=== PATIENT | female | born 1965 | race Caucasian/White ===

== ENCOUNTER → 2018-07-04 | Day surgery (SDC) | payer OTHER ==
[2018-07-01 12:36] VITALS: BMI 35.9
[~2018-07-04] MED LIST: HYDROmorphone 0.5 MG/0.5 ML SYRINGE IVP PRN; LACTATED RINGERS 1,000 ML IV ONE; LACTATED RINGERS 1,000 ML IV SCH; LIDOCAINE 1% 20 ML VIAL (10MG/ML) FOR IV START INTRADERMA PRN; LIDOCAINE 1% INJ 10MG/ML (20 ML MDV) ONE; MIDAZOLAM 2 MG/2 ML VIAL IV PRN; MIDAZOLAM 2 MG/2 ML VIAL ONE; PROPOFOL 10 MG/ML 20 ML VIAL IV ONE; Pre Op ABX Message 1 EACH MISC MISCELLANE ONE; fentaNYL (PF) 50 MCG/ML 2 ML AMP ONE
[2018-07-04 07:41] VITALS: TEMP 98.2
--- NOTE | 2018-07-04 08:30 | P.OP ---
Date of Procedure: 07/04/18 Preoperative Diagnosis: Abdominal pain, GERD Postoperative Diagnosis: Gastritis Procedure(s) Performed: EGD with Biopsy Anesthesia: MAC Surgeon: Randy Neville Condition: stable Disposition: PACU Operative Findings: Patient is brought into the operative suite placed in the left lateral decubitus position underwent sedation per department of anesthesia endoscope was passed through the oropharynx down the esophagus with ease through the stomach and the first and second portion of the duodenum which were inspected no abnormalities were noted the scope was withdrawn to the stomach and retroflexed in all diaz of the stomach were inspected there is no significant hilar hernia noted there was some mild gastritis. Antral biopsies taken to rule out H. pylori. Scope was then withdrawn to the GE junction biopsies of the GE junction were taken to rule out Judge's esophagitis. Scope was slowly withdrawn through the esophagus there was at 25 cm a patch of hypertrophic or inflamed appearing esophageal tissue this was biopsied. Patient tolerated procedure well no apparent complications please see the other dictation for a colonoscopy.
--- NOTE | 2018-07-04 08:32 | P.OP ---
Date of Procedure: 07/04/18 Preoperative Diagnosis: Screening abdominal pain Postoperative Diagnosis: Normal appearing colon Anesthesia: MAC Surgeon: Randy Neville Condition: stable Disposition: PACU Operative Findings: Patient previously had underwent sedation per department of anesthesia and upper endoscopy was performed patient was turned rectal exam was performed no abnormalities were noted scope was passed from the rectum to the cecum with ease and slowly withdrawn being sure to visualize all diaz of the colon on the way out the scope was retroflexed in the rectum no abnormalities were noted. Patient artery procedure well no apparent complications she will need a repeat colonoscopy in 10 years.
[2018-07-04 08:33] VITALS: PULSE 67; RESP 16
[2018-07-04 08:51] VITALS: BP 144/91
== END ==
LOC: ORWHC2ENDO 07:20
PROVIDERS: ATTEND Student in an Organized Health Care Education/Training Program
DX: Z12.11 Encounter for screening for malignant neoplasm of colon (principal); K29.50 Unspecified chronic gastritis without bleeding; K21.0 Gastro-esophageal reflux disease with esophagitis; Z80.8 Family history of malignant neoplasm of other organs or systems; D64.9 Anemia, unspecified; F32.9 Major depressive disorder, single episode, unspecified; H40.9 Unspecified glaucoma; I10 Essential (primary) hypertension; E03.9 Hypothyroidism, unspecified; Z79.890 Hormone replacement therapy; Z79.899 Other long term (current) drug therapy; Z90.49 Acquired absence of other specified parts of digestive tract
CPT/HCPCS: 81025; 88305; 43239; J2250; J2001; J3010; J2704; G0105

== ENCOUNTER → 2018-09-26 | Outpatient (CLI) | payer OTHER ==
--- NOTE | 2018-09-26 17:20 | CONS ---
CONSULTATION DATE OF SERVICE: 09/26/2018 This patient is a 52-year-old lady who has been evaluated in the sleep center for possible obstructive sleep apnea-hypopnea syndrome and also for symptoms of restless legs and episodes of hsy-vq-pffaw movements. HISTORY OF PRESENT ILLNESS/SLEEP-WAKE EVALUATION: Patient's usual sleep schedule on weekdays us from 11 p.m. until 5:30 a.m. and on weekends from 11 p.m. until 8:30 or 9 a.m. No problems with falling asleep, although she has a TV set in the bedroom. She usually sleeps on the side position, with snoring, according to her . Patient wakes up from sleep with dry mouth, heartburn, leg movements and nocturia up to 5 times. She has had several episodes of mxp-ou-czrwq movements with moving of her arms. In the morning patient wakes up tired, has difficulties paying attention and problems with concentration. [place] Sleepiness Scale is 9. PAST MEDICAL HISTORY: Positive for: 1. Acid reflux. 2. Gastritis. 3. Hypertension. 4. Hypothyroidism. PAST SURGICAL HISTORY: 1. Cholecystectomy. 2. Intraabdominal surgery for fibroids. MEDICATIONS: 1. Metoprolol. 2. Sertraline. 3. Losartan. 4. Amlodipine. 5. Pantoprazole. 6. Levothyroxine. SOCIAL HISTORY: Negative for smoking. Alcohol consumption occasional. FAMILY HISTORY: Hypertension, coronary artery disease, heart problems, cancer, thyroid problems, mental illness. REVIEW OF SYSTEMS: Multiple awakenings from sleep, tiredness and sleepiness during the day. PHYSICAL EXAMINATION: GENERAL: A pleasant lady without distress. VITAL SIGNS: BP 129/87, HR 64, RR 16, height 5 feet 1-1/4 inches, weight 202.3, temperature 98.4, oxygen saturation at room air 100%. HEENT: PERRLA, EOMI. Evaluation of oropharynx showed tongue protrudes midline. Extremely low position of soft palate. Mallampati IV. NECK: Supple. No JVD. Thyroid is not palpable. Neck is 15 inches in circumference. Some restriction of nasal breathing. LUNGS: Clear to percussion and to auscultation. Good air exchange. No wheezing or rhonchi. HEART: S1, S2 regular. No murmurs, gallops or rubs. ABDOMEN: Slightly obese. EXTREMITIES: No clubbing or cyanosis. COMPO CASTER: Awake, alert, and oriented X3. Cranial nerves 2 to 7 intact. There is no fasciculation or atrophy. noted. No focal deficits observed. IMPRESSION: 1. Snoring, multiple awakenings from sleep, extremely low position of soft palate, restriction of nasal breathing; obstructive sleep apnea-hypopnea syndrome. 2. Obesity with body mass index of 37.9. 3. Hypertension. 4. Restless leg symptoms. 5. Jns-rj-tbgjo movements, usually in the second part of the night , possibly REM sleep behavioral disorder. 6. History of gastritis. 7. Hypothyroidism. 8. Status post cholecystectomy. 9. Status post intraabdominal surgery for fibroids in the uterus. PLAN: 1. Polysomnography for evaluation of patient's breathing during sleep and also to check for possible periodic limb movements and REM sleep behavioral disorder. 2. CPAP/BiPAP titration if sleep study confirms obstructive sleep apnea-hypopnea syndrome. 3. Preferable position during sleep on the side. 4. No driving if patient feels any sleepiness. 5. I will see patient for follow up visit to explain results of testing and following plan. Thank you for referring this patient for consultation. Sincerely, Lebron Contreras MD, PhD, FAASM Diplomat of [place] [employer] [place] [employer] Mid Level Project Manager of [facility] [place] BERNARDO / FINN: [id number] /
== END | disposition home or self-care (01) ==
LOC: SLEEP 16:07
PROVIDERS: ATTEND Internal Medicine
DX: G47.33 Obstructive sleep apnea (adult) (pediatric) (principal); E66.9 Obesity, unspecified; I10 Essential (primary) hypertension; G25.81 Restless legs syndrome; E03.9 Hypothyroidism, unspecified; Z68.37 Body mass index [BMI] 37.0-37.9, adult; Z87.19 Personal history of other diseases of the digestive system; Z90.49 Acquired absence of other specified parts of digestive tract; Z98.890 Other specified postprocedural states; Z79.899 Other long term (current) drug therapy
CPT/HCPCS: 99211

== ENCOUNTER → 2019-02-20 | Outpatient (CLI) | payer BC, OTHER ==
--- NOTE | 2019-02-20 19:32 | PN ---
PROGRESS NOTE DATE OF SERVICE: 02/20/2019 This patient is a 53-year-old lady who has been followed in Sleep Center for treatment of obstructive sleep apnea-hypopnea syndrome. In October the patient had a diagnostic polysomnogram which showed extremely severe obstructive sleep apnea-hypopnea syndrome. After that the patient was started on treatment with AutoPAP. Today is her first visit after she received her CPAP unit. I discussed results of the diagnostic sleep study with the patient in detail. The patient is able to use her equipment every night for the whole night. She feels significantly better with CPAP. No sleepiness during the day. She does not need to take any naps. [place] Sleepiness Scale has decreased to 2. I checked her CPAP unit. Range of the pressure is 5 to 15. Average pressure is 14.6 cm of water. Usage is 25/30 nights for more than 4 hours with average usage 5.0 hours, which is normal compliance. Leak is 19 L/minute, which is normal. Apnea-hypopnea index is only 0.3, which is absolutely perfect. MEDICATIONS: 1. Metoprolol. 2. Sertraline. 3. Losartan. 4. Amlodipine. 5. Pantoprazole. 6. Levothyroxine. PHYSICAL EXAMINATION: GENERAL: A pleasant patient in no distress. VITAL SIGNS: BP 132/82, HR 66, RR 16, weight 215, temperature 98.5, oxygen saturation at room air 97%. HEENT: PERRLA, EOMI. Evaluation of oropharynx showed tongue protrudes midline. Extremely low position of soft palate. Mallampati IV. NECK: Supple. No JVD. Thyroid is not palpable. LUNGS: Clear to percussion and to auscultation. Good air exchange. No wheezing or rhonchi. HEART: S1, S2 regular. No murmurs, gallops or rubs. ABDOMEN: Slightly obese. EXTREMITIES: No clubbing or cyanosis. COVER REMOVER: Awake, alert, and oriented X3. Cranial nerves 2 to 7 intact. There is no fasciculation or atrophy. noted. No focal deficits observed. IMPRESSION: 1. Obstructive sleep apnea-hypopnea syndrome, in severe range. Apnea/hypopnea index 86.5 with oxygen desaturation to 81.1%. Patient demonstrated great compliance with treatment, benefitting from treatment, with normalization of patient's respiration during sleep. 2. Obesity. 3. Periodic limb movements during diagnostic night. No significant clinical presentation of periodic limb movements now. 4. Hypothyroidism. 5. Hypertension. 6. History of anxiety. 7. History of acid reflux, improved after patient was started on treatment with CPAP. PLAN: 1. Patient will continue to use CPAP equipment every night for the whole night. 2. Losing weight. 3. Sleep hygiene with regular time in bed for at least 8 hours. 4. No driving if feeling any sleepiness. 5. We will maintain all necessary CPAP prescriptions, including mask, tube and filters. Thank you very much for allowing me to participate in the management of your patient. Sincerely, Lebron Contreras MD, PhD, FAASM Diplomat of [place] [employer] [employer] [place] Assembler of [facility] [place] MMODL / CAROLYNN: [id number] /
== END | disposition home or self-care (01) ==
LOC: SLEEP 15:50
PROVIDERS: ATTEND Internal Medicine
DX: G47.33 Obstructive sleep apnea (adult) (pediatric) (principal); E66.9 Obesity, unspecified; G47.61 Periodic limb movement disorder; E03.9 Hypothyroidism, unspecified; I10 Essential (primary) hypertension; Z86.59 Personal history of other mental and behavioral disorders; Z87.19 Personal history of other diseases of the digestive system; Z99.89 Dependence on other enabling machines and devices; Z79.899 Other long term (current) drug therapy

== ENCOUNTER → 2019-09-12 | Outpatient (CLI) | payer BC ==
--- NOTE | 2019-09-15 09:54 | ECHOS ---
STRESS ECHOCARDIOGRAM REFERRING DOCTOR: Dr. Melchor. INDICATION: Chest pain. AGE: 53 SEX: F HT: 61 WT: 215 PROTOCOL: STRESS ECHO STAGE: III DURATION OF EXERCISE: 6 minutes 15 seconds HEART RATE REST: 63 BLOOD PRESSURE REST: 118/76 MAXIMUM HEART RATE ACHIEVED: 147 MAXIMUM BLOOD PRESSURE: 208/89 85% MPHR: 144 100% MPHR: 169 METS: 7.3 STRESS DATA: Heart rate 63, pressure is 189/76 mmHg. Baseline EKG showed sinus mechanism. The patient exercised on the treadmill according to Duane protocol for a total of 6 minutes and 15 seconds and achieved 7.3 METS. Max heart rate was 147, which is about 87% of maximum predicted heart rate. Maximum blood pressure was 208/89 mmHg. Clinically the patient developed shortness of breath in response to exercise. The EKG showed about 1- 1.5 mm horizontal and downsloping ST-segment changes. ECHOCARDIOGRAM IMAGES: On echocardiogram images from parasternal long axis view, parasternal short axis view, apical 4 chamber view, and apical 2 chamber view were obtained as the baseline images, at peak heart rate as well as on recovery. The echocardiogram images showed good augmentation in the left ventricular systolic function without any evidence of wall motion abnormalities concerning for ischemia. CONCLUSION: 1. Good exercise tolerance. 2. Abnormal EKG in response to exercise with evidence of ST changes. 3. Normal echocardiogram in response to exercise without any evidence of wall motion abnormalities concerning for ischemia. CLAUDETTEL / IJN: [id number] /
== END | disposition home or self-care (01) ==
LOC: RADNMMAIN 08:54
PROVIDERS: ATTEND Internal Medicine
DX: R94.31 Abnormal electrocardiogram [ECG] [EKG] (principal)
CPT/HCPCS: 93351

== ENCOUNTER → 2020-05-26 | Outpatient (CLI) | payer BC ==
[2020-05-26 10:47] LABS: Basophils # (A) 0.1 k/uL (0-0.2); Basophils % (A) 1 %; Eosinophils # (A) 0.3 k/uL (0-0.7); Eosinophils % (A) 3 %; HCT 43.5 % (34.0-46.0); HGB 13.8 gm/dL (11.4-16.0); Lymphocytes # (A) 2.7 k/uL (1.0-4.8); Lymphocytes % (A) 32 %; MCH 26.1 pg (25.0-35.0); MCHC 31.7 g/dL (31.0-37.0); MCV 82.4 fL (80.0-100.0); Mean Platelet Volume 6.9; Monocytes # (A) 0.5 k/uL (0-1.0); Monocytes % (A) 5 %; Neutrophils # (A) 4.9 k/uL (1.3-7.7); Neutrophils % (A) 57 %; Platelet Count 245 k/uL (150-450); RBC 5.28 m/uL (3.80-5.40); WBC 8.5 k/uL (3.8-10.6)
[2020-05-26 10:53] LABS: Cholesterol 195 mg/dL (<200); HDL Cholesterol 38 mg/dL (40-60); LDL Cholesterol,Calculated 129 mg/dL (0-99); Triglycerides 142 mg/dL (<150)
[2020-05-26 11:20] LABS: ALT 37 U/L (4-34); AST 48 U/L (14-36); African American GFR (CKD) >90 (>60 ml/min/1.73 sqM); Albumin 4.5 g/dL (3.5-5.0); Alkaline Phosphatase 79 U/L (38-126); Anion Gap 9 mmol/L; Blood Urea Nitrogen 14 mg/dL (7-17); Calcium 9.2 mg/dL (8.4-10.2); Carbon Dioxide 25 mmol/L (22-30); Chloride 105 mmol/L (98-107); Glucose 88 mg/dL (74-99); Non-African American GFR(CKD) >90 (>60 ml/min/1.73 sqM); Potassium 4.2 mmol/L (3.5-5.1); Sodium 139 mmol/L (137-145); Total Bilirubin 0.6 mg/dL (0.2-1.3); Total Protein 8.1 g/dL (6.3-8.2)
[2020-05-26 11:36] LABS: T4, Free (Free Thyroxine) 1.14 ng/dL (0.78-2.19)
== END | disposition home or self-care (01) ==
LOC: LABPAT 09:00
PROVIDERS: ATTEND Obstetrics & Gynecology
DX: Z01.818 Encounter for other preprocedural examination (principal); I10 Essential (primary) hypertension; E78.2 Mixed hyperlipidemia; E03.9 Hypothyroidism, unspecified
CPT/HCPCS: 36415; 80053; 80061; 84439; 84443; 85025; 93005

== ENCOUNTER → 2020-06-01 | Day surgery (SDC) | payer BC ==
[2020-05-27 08:59] VITALS: BMI 40.6
--- NOTE | 2020-05-31 20:05 | P.HPOB ---
History of Present Illness H&P Date: 05/31/20 Chief Complaint: Menorrhagia with irregular cycle This is a 54 y.o. female, 0, who presents for dilatation and curettage with hysteroscopy for irregular long menses. Her menses are coming every 1-5 months, lasting up to 3 weeks. Flow is moderate, brown, and malodorous. She tried Provera and it did slow her bleeding, but it has continued to happen. Ultrasound showed uterus measuring 7.4 x 6.2 x 4.3 cm with a fibroid on the left side measuring 2.3 cm. Endometrial thickness only measured 2 mm. Both ovaries are normal. OB Hx: G0 Vp Medical Hx: No hx of STDs. Social Hx: . Works as manufacturing accountant. Review of Systems Constitutional: Reports night sweats, Denies chills, Denies fever Eyes: denies blurred vision, denies pain Ears, nose, mouth and throat: Denies headache, Denies sore throat Cardiovascular: Denies chest pain, Denies shortness of breath Respiratory: Denies cough Gastrointestinal: Denies abdominal pain, Denies diarrhea, Denies nausea, Denies vomiting Genitourinary: Reports hot flashes, Reports menorrhagia, Reports stress incontinence Menstruation: Reports menses 8 or > days, Reports menses variable Musculoskeletal: Denies myalgias Integumentary: Denies pruritus, Denies rash Neurological: Denies numbness, Denies weakness Psychiatric: Reports anxiety, Reports depression Past Medical History Past Medical History: GERD/Reflux, Hypertension, Sleep Apnea/CPAP/BIPAP, Thyroid Disorder Additional Past Medical History / Comment(s): hx endometriosis, heavy menses, history of bicornate uterus History of Any Multi-Drug Resistant Organisms: None Reported Past Surgical History: Cholecystectomy Additional Past Surgical History / Comment(s): LAPAROSCOPIC EXAM X2; Hysteroscopic removal of uterine septum Past Anesthesia/Blood Transfusion Reactions: No Reported Reaction Additional Past Anesthesia/Blood Transfusion Reaction / Comment(s): 2007-had too much valium preop had to be intubated-surgeries after with no problems.No hx blood transfusion Past Psychological History: Anxiety, Depression Smoking Status: Never smoker Past Alcohol Use History: Occasional Past Drug Use History: None Reported - Past Family History Mother Family Medical History: Cancer, Deep Vein Thrombosis (DVT) Additional Family Medical History / Comment(s): LUNG CANCER Medications and Allergies Home Medications Medication Instructions Recorded Confirmed Type Cetirizine HCl [Zyrtec] 10 mg PO DAILY 07/01/18 06/01/20 History Levothyroxine Sodium [Synthroid] 50 mcg PO QAM 07/01/18 06/01/20 History Losartan/Hydrochlorothiazide 1 each PO QAM 07/01/18 06/01/20 History [Losartan-Hctz 100-25 mg Tab] Metoprolol Succinate [Toprol Xl] 100 mg PO BID 07/01/18 06/01/20 History Sertraline [Zoloft] 100 mg PO QAM 07/01/18 06/01/20 History amLODIPine [Norvasc] 10 mg PO QAM 07/01/18 06/01/20 History Medroxyprogesterone Acetate 10 mg PO DAILY 05/27/20 06/01/20 History [Provera] Allergies Allergy/AdvReac Type Severity Reaction Status Date / Time No Known Allergies Allergy Verified 06/01/20 06:34 Exam Osteopathic Statement: *. No significant issues noted on an osteopathic structural exam other than those noted in the History and Physical/Consult. HEENT: within normal limits Heart: regular rate and rhythm Lungs: clear to auscultation bilaterally Abdomen: soft, non-tender Pelvic: uterus small, anteverted, non-tender, no adnexal masses or tenderness Extremities: neg. June's. Assessment and Plan (1) Menorrhagia with irregular cycle Current Visit: No Status: Acute Code(s): N92.1 - EXCESSIVE AND FREQUENT MENSTRUATION WITH IRREGULAR CYCLE SNOMED Code(s): 775703429 Plan: Proceed with dilatation and curettage with hysteroscopy. I have discussed the risks, benefits, and alternative therapies for the above- mentioned procedure and for both sedation/anesthesia as well as necessary blood products administration, if indicated, as they pertain to this patient. The p atient has indicated her understanding and acceptance of the risks and procedures discussed.
[~2020-06-01] MED LIST changes: +DEXAMETHASONE SOD PHOSPHATE 10 MG/ML 1 ML VIAL IV ONE; -HYDROmorphone 0.5 MG/0.5 ML SYRINGE IVP PRN; +KETOROLAC 15 MG/ML 1 ML VIAL ONE; -LACTATED RINGERS 1,000 ML IV ONE; +LIDOCAINE 1% (10MG/ML) FOR IV START INTRADERMA PRN; -LIDOCAINE 1% 20 ML VIAL (10MG/ML) FOR IV START INTRADERMA PRN; -MIDAZOLAM 2 MG/2 ML VIAL IV PRN; +ONDANSETRON 4 MG/2 ML VIAL ONE; +SUCCINYLCHOLINE CHLORIDE VIAL 200 MG/10 ML VIAL IV ONE
[2020-06-01 06:37] VITALS: RESP 16
--- NOTE | 2020-06-01 08:09 | P.OP ---
Date of Procedure: 06/01/20 Preoperative Diagnosis: Menorrhagia with irregular cycle Postoperative Diagnosis: Same Procedure(s) Performed: Dilation and curettage with hysteroscopy Anesthesia: FLIP Surgeon: Ness Mason Estimated Blood Loss (ml): 10 Pathology: other (Endometrial curettings) Condition: stable Disposition: same day Indications for Procedure: This is a 54 y.o. female, 0, who presents for dilatation and curettage with hysteroscopy for irregular long menses. Her menses are coming every 1-5 months, lasting up to 3 weeks. Flow is moderate, brown, and malodorous. She tried Provera and it did slow her bleeding, but it has continued to happen. Ultrasound showed uterus measuring 7.4 x 6.2 x 4.3 cm with a fibroid on the left side measuring 2.3 cm. Endometrial thickness only measured 2 mm. Both ovaries are normal. Operative Findings: Uterus is anteverted, sounded to 9 cm. Upon hysteroscopy, a very dyssynchronous endometrial pattern is noted. The right tubal ostia is visualized but the left tubal ostia is not completely visualized. There is what appears to be polypoid versus fibroid type tissue. There was a large amount of endometrial curettings obtained. Description of Procedure: The patient is taken to the operating room she's placed in the dorsal lithotomy position. She is prepped and draped in the normal sterile fashion. Her bladder is drained with a catheter. Examination is performed under anesthesia. Uterus is found to be anteverted, with no adnexal masses palpated. A weighted speculum was placed in the patient's vagina. A right angle retractor is used to visualize the cervix. The anterior lip of the cervix is grasped with a single- tooth tenaculum. The cervix is gently dilated with Marie dilators. Uterus is sounded to 9 cm. Next hysteroscopy is performed using normal saline. The above noted findings are made and pictures are taken. Next the polyp forceps is introduced and a large amount of polypoid type tissue is obtained. Next a medium-size sharp curet was introduced and sharp curettage was performed until a gritty texture is noted. An irregular contour is palpated and a large amount of tissue is obtained. Next the tissue is removed from the field and sent to pathology. The single-tooth tenaculum was removed. Pressure is applied with a ring forcep. Once the ring forcep was removed no active bleeding is noted. All instruments are removed from the vagina. All sponge counts are correct. The patient is then taken to recovery room in stable condition.
[2020-06-01 08:25] VITALS: TEMP 96.8
[2020-06-01 09:21] VITALS: BP 123/82; PULSE 57
== END | disposition home or self-care (01) ==
LOC: OR 06:19
PROVIDERS: ATTEND Obstetrics & Gynecology
DX: C54.1 Malignant neoplasm of endometrium (principal); N92.0 Excessive and frequent menstruation with regular cycle; K21.9 Gastro-esophageal reflux disease without esophagitis; G47.30 Sleep apnea, unspecified; E07.9 Disorder of thyroid, unspecified; Z87.42 Personal history of other diseases of the female genital tract; N84.0 Polyp of corpus uteri; Q51.3 Bicornate uterus; Z90.49 Acquired absence of other specified parts of digestive tract; Z98.890 Other specified postprocedural states; F41.9 Anxiety disorder, unspecified; F32.9 Major depressive disorder, single episode, unspecified; Z82.49 Family history of ischemic heart disease and other diseases of the circulatory system; Z80.1 Family history of malignant neoplasm of trachea, bronchus and lung; I10 Essential (primary) hypertension; G47.33 Obstructive sleep apnea (adult) (pediatric); Z99.89 Dependence on other enabling machines and devices; Z79.890 Hormone replacement therapy; Z79.899 Other long term (current) drug therapy
CPT/HCPCS: 58558; 81025; 88305; J2250; J0330; J1100; J2405; J2001; J3010; J1885; J2704

== ENCOUNTER → 2020-06-18 | Outpatient (CLI) | payer BC ==
--- NOTE | 2020-06-18 19:21 | CT ---
EXAMINATION TYPE: CT ChestAbdPelvis w con DATE OF EXAM: 06/18/2020 COMPARISON: CT chest 01/30/2010 HISTORY: Endometrial CA CT DLP: 1708 mGycm Automated exposure control for dose reduction was used. CONTRAST: CT scan of the chest, abdomen and pelvis is performed with Oral Contrast and with IV Contrast, patien t injected with 100 mL of Isovue 300. FINDINGS: LUNGS: Lungs are grossly clear. No concerning parenchymal mass or nodule identified. No pleural effus ion. No pneumothorax. The tracheobronchial tree is patent. MEDIASTINUM/SOFT TISSUES: No axillary, hilar, or mediastinal lymphadenopathy greater than 1 cm. Cardi omegaly. No pericardial effusion. No thoracic aortic aneurysm. LIVER: Fatty liver. BILIARY SYSTEM: Prominent common bile duct status post cystectomy. No intrahepatic biliary ductal dil atation. PANCREAS: Normal. SPLEEN: Normal. ADRENALS: Normal. KIDNEYS: No hydronephrosis or hydroureter. Too small to characterize hypodense lesion on the right. BOWEL: No obstruction or thickening. PERITONEUM: No pneumoperitoneum. No free fluid. No peritoneal nodularity. LYMPH NODES: No lymphadenopathy. PELVIS: Normal. VASCULATURE: No abdominal aortic aneurysm. MUSCULOSKELETAL: No aggressive osseous destructive lesions. There are a few scattered hemangiomas of the spine. IMPRESSION: 1. No discrete pelvic mass. No evidence of metastatic endometrial cancer of the chest, abdomen, or p epifanio. 2. Fatty liver. 3. Cardiomegaly.
== END | disposition home or self-care (01) ==
LOC: RADCTMAIN 12:11
PROVIDERS: ATTEND Obstetrics & Gynecology
DX: C54.1 Malignant neoplasm of endometrium (principal); K76.0 Fatty (change of) liver, not elsewhere classified; I51.7 Cardiomegaly
CPT/HCPCS: 71260; 74177; Q9967

== ENCOUNTER → 2021-05-20 | Outpatient (CLI) | payer BC | END | disposition home or self-care (01) | LOC: LABWHC1 08:43 | PROVIDERS: ATTEND Internal Medicine | DX: R21 Rash and other nonspecific skin eruption (principal) | CPT/HCPCS: 36415; 86162 ==

== ENCOUNTER → 2021-08-19 | Outpatient (CLI) | payer BC ==
--- NOTE | 2021-08-19 11:56 | NM ---
EXAMINATION TYPE: NM stress cardiolite complete DATE OF EXAM: 08/19/2021 COMPARISON: NONE HISTORY: Family history of heart attack. History of hypertension with abnormal EKG, bradycardia. TECHNIQUE: After the intravenous administration of 9.4 mCi Tc 99m Sestamibi - Rest images obtained 4 5 minutes post injection. The patient exercised using a KAMLA protocol and 1 minute prior to peak e xercise was injected with 24.7 mCi Tc 99m Sestamibi - Stress images obtained 25 minutes post injectio n. FINDINGS: Targeted heart rate was achieved during performance of the study. Review of stress and rest SPECT dolores ges demonstrates area of defect on rest and stress images involving the anterior wall extending later ally at mid aspect could reflect old infarct or artifact. Gated analysis shows normal wall motion wi th an estimated left ventricular ejection fraction of 65 %. IMPRESSION: No scintigraphic evidence for reversible ischemia
--- NOTE | 2021-08-19 12:03 | P.STRESS ---
- Stress Test Note Stress Test Results/Findings: Exam Performed: NM stress cardiolite complete Exam Date: 08/19/21 Reason for Exam: Abnormal EKG Height: 5 ft 1 in Weight: 104.326 kg Protocol: Duane Stage: 3 Duration of Exercise: 7:26 Resting Heart Rate: 54 Resting Blood Pressure: 115/83 Maximum Achieved Heart Rate: 144 Maximum Achieved Blood Pressure: 215/95 85% PMHR: 147 100% PMHR: 167 METS: 9.5 Technologist Comment: Stress Test Results/Findings: Patient underwent exercise stress Cardiolite with a Duane protocol treadmill stress test. Patient exercised into Stage 3 for a total of 7 minutes and 26 seconds reaching a total of 9.5 METS. Patient's maximum heart rate was 144 which represented 86 % age-predicted maximum heart rate. Stress EKG findings: At baseline patient's EKG showed normal sinus rhythm, normal axis, small Q wave in inferior leads, minimal 0.[address] depressions in V3, V4. At peak exercise, EKG showed no significant change from baseline. Conclusions: 1. Nonspecific EKG response given baseline EKG abnormalities 2. Fair exercise capacity. 3. Nuclear portion to be reported separately.
== END ==
LOC: RADNMMAIN 07:51
PROVIDERS: ATTEND Internal Medicine
DX: R94.31 Abnormal electrocardiogram [ECG] [EKG] (principal); I10 Essential (primary) hypertension; Z82.49 Family history of ischemic heart disease and other diseases of the circulatory system; R00.1 Bradycardia, unspecified
CPT/HCPCS: 93017; 78452; A9500

== ENCOUNTER → 2021-11-04 | Outpatient (CLI) | payer BC ==
[2021-11-04 10:12] VITALS: BP 142/100; PULSE 66; RESP 17; TEMP 97.8
--- NOTE | 2021-11-04 10:49 | P.GSHP ---
History of Present Illness H&P Date: 11/04/21 Chief Complaint: breast pain Sánchez is a 55 year old white female seen in consultation for DR. Mason regarding right breast pain. The diagnostic reports mammogram and 7121 this was to be benign BIRADS 2, however approximately a month later on 05-30-21 to have a bilateral mammogram which revealed an asymmetric area of density in the central portion of the right breast. On the same day she had an ultrasound of the right breast which revealed simple cyst no suspicious fluid collection or mass within the right breast. It was felt to be probably benign BIRADS 3. She has been having pain about one month ago under the nipple on the right. She also had a new nodule in the upper inner right breast. This is tender as well. She has never had any surgery on her breast. She has no complaints of any trauma or infection in the breast. She is not complaining of any nipple discharge or skin changes. The only nodularity which she reports is a area of new nodularity in the upper inner quadrant on the right breast. Caffiene: 2 cups of coffee/day nicotine: none chocolate: occasional hormones: none BCP: stage three uterine cancer a radicle hysterectomy July 2020, August 2020 ended January 2021; 5 sessions radiation therapy [place]; to her knowledge at this time she is in remission (coded on Taxol) Family History: pateint: uterine cancer mother: lung cancer Hormonal History: menarche: 14 G0 menopause: 47 hormones: none Surgical History: Laparoscopy to correct septated uterus Radical hysterectomy gallbladder endometriosis Medical History: HTN hypothyroid pulmonary embloli/ patient on Eloquis Social History: nicotine: none alcohol: occasional drugs: none - Constitutional Constitutional: Reports sweats - EENT Eyes: denies blurred vision, denies pain Ears: bilateral: tinnitus, deny: decreased hearing Ears, nose, mouth and throat: Denies headache, Denies sore throat - Breasts Breasts: bilateral: as per HPI - Cardiovascular Cardiovascular: Denies chest pain, Denies shortness of breath - Respiratory Respiratory: Denies cough, Denies 7 - Gastrointestinal Gastrointestinal: Denies abdominal pain, Denies diarrhea, Denies nausea, Denies vomiting - Genitourinary (Female) Genitourinary: Denies dysuria, Denies hematuria - Menstruation Comment: uterine cancer - Musculoskeletal Musculoskeletal: Denies myalgias - Integumentary Integumentary: Denies pruritus, Denies rash - Neurological Neurological: Denies numbness, Denies weakness - Psychiatric Psychiatric: Reports anxiety - Endocrine Comment: hypothyroid Endocrine: Reports fatigue, Reports weight change - Hematologic/Lymphatic Comment: on Eloquis for Pulmonary Emboli - Allergic/Immunologic Allergic/Immunologic: Reports seasonal allergies Past Medical History Past Medical History: GERD/Reflux, Hypertension, Thyroid Disorder Additional Past Medical History / Comment(s): uterine cancer 2019-stage 3. blood clots in lungs during cancer dx 2019 History of Any Multi-Drug Resistant Organisms: None Reported Past Surgical History: Cholecystectomy, Hysterectomy Additional Past Surgical History / Comment(s): radical hysterectomy with chemo radiation-2019 Past Anesthesia/Blood Transfusion Reactions: No Reported Reaction Additional Past Anesthesia/Blood Transfusion Reaction / Comment(s): 2007-had too much valium preop had to be intubated-surgeries after with no problems.No hx blood transfusion Past Psychological History: Depression Smoking Status: Never smoker Past Alcohol Use History: Rare Past Drug Use History: None Reported - Past Family History Mother Family Medical History: Cancer, Deep Vein Thrombosis (DVT) Additional Family Medical History / Comment(s): LUNG CANCER Medications and Allergies Home Medications Medication Instructions Recorded Confirmed Type Cetirizine HCl [Zyrtec] 10 mg PO DAILY 07/01/18 11/04/21 History Levothyroxine Sodium [Synthroid] 50 mcg PO QAM 07/01/18 11/04/21 History Losartan/Hydrochlorothiazide 1 each PO QAM 07/01/18 11/04/21 History [Losartan-Hctz 100-25 mg Tab] Metoprolol Succinate [Toprol Xl] 100 mg PO BID 07/01/18 11/04/21 History Sertraline [Zoloft] 100 mg PO QAM 07/01/18 11/04/21 History amLODIPine [Norvasc] 10 mg PO QAM 07/01/18 11/04/21 History Apixaban [Eliquis] 5 mg PO BID 11/04/21 11/04/21 History Allergies Allergy/AdvReac Type Severity Reaction Status Date / Time paclitaxel [From Taxol] Allergy Anaphylaxis Verified 11/04/21 10:03 Surgical - Exam Vital Signs Temp Pulse Resp BP 97.8 F 66 17 142/100 11/04/21 10:05 11/04/21 10:05 11/04/21 10:05 11/04/21 10:05 BMI 43.1 - General no distress - Eyes normal ocular movement - ENT no hearing loss, no congestion - Neck trachea midline - Respiratory normal respiratory effort, clear to auscultation - Cardiovascular Rhythm: regular Heart Sounds: normal: S1, S2 - Abdomen Abdomen: soft, non tender, no guarding, no rigid, no rebound - Integumentary normal turgor - Neurologic no disoriented, no combative - Musculoskeletal normal gait - Psychiatric oriented to time, oriented to person, oriented to place, speech is normal, memory intact Breast Exam: BRA: 42C inspection: bilateral grade 3 ptosis, right breast smaller than left breast, a fungal infection under both breast palpation: right breast: Positional exam dense breast tissue, no dominant masses or nodules of concern, lower inner quadrant at inframammary ridge increased tenderness but no discrete mass of concern Right axilla: No adenopathy of concern Left breast: Multi-positional exam fibrocystic changes, dense breasts, no discrete masses prominent inframammary ridge Left axilla: No adenopathy of concern Results Mammogram and ultrasound reports reviewed Assessment and Plan Assessment: Impression: Bilateral fibrocystic breast changes Patient personal history of uterine cancer stage III/in remission at this time Decreased tenderness right breast but persistent with something touching it Prominent inframammary ridges bilateral tender on the right side Patient to follow right breast repeat radiographic studies Nothing noted on today's exam which would warrant interventional biopsy Plan: Right breast mammogram and ultrasound at this time Nystatin cream under the breast Follow-up after mammogram and ultrasound Cc: Dr. Mason, Dr. Melchor
== END ==
LOC: WWCWWP 09:44
PROVIDERS: ATTEND Surgery
DX: N60.11 Diffuse cystic mastopathy of right breast (principal); N60.12 Diffuse cystic mastopathy of left breast; C54.9 Malignant neoplasm of corpus uteri, unspecified; E03.9 Hypothyroidism, unspecified; I10 Essential (primary) hypertension; F32.A Depression, unspecified; Z79.899 Other long term (current) drug therapy; Z88.8 Allergy status to other drugs, medicaments and biological substances

== ENCOUNTER → 2021-11-17 | Outpatient (CLI) | payer BC ==
[2021-11-17 08:49] VITALS: BP 140/85; PULSE 67; RESP 16; TEMP 97.6
--- NOTE | 2021-11-17 09:19 | P.PN ---
Progress Note - Text Progress Note Date: 11/17/21 ; Sánchez is a 56-year-old white female who was seen initially on 2421 regarding breast pain. Of significance is the fact that she has a personal history of uterine cancer stage III in remission at this time. She at that time was noted to have decreased tenderness in her breast but persistent with some touching. She was recommended to undergo repeat right breast mammogram and ultrasound. This was performed on . It was personally reviewed. This is felt to be benign BIRADS 2 and repeat bilateral mammogram is recommended for March on schedule with an appointment at that time. If the patient notes any changes she will call us sooner. CC: Dr. Mason, Dr. Melchor
== END ==
LOC: WWCWWP 08:34
PROVIDERS: ATTEND Surgery
DX: N64.4 Mastodynia (principal); Z85.42 Personal history of malignant neoplasm of other parts of uterus; Z88.8 Allergy status to other drugs, medicaments and biological substances

== ENCOUNTER → 2023-04-11 | Outpatient (CLI) | payer BC ==
--- NOTE | 2023-04-11 11:03 | CA ---
Exercise Nuclear Stress Test Report Name: Sánchez Savage Exam Date: 04/11/2023 10:32 Exam Location: [facility] Stress Ht (in): 61 Wt (lb): 236 BSA: 2.03 Ordering Phys: Yaneth Melchor MD Referring Phys: Ruiz, Technologist: Stan Richard Age: 57 Gender: F : 1965 Procedure CPT: Indications: I21.19 STEMI INVOLVING OTH CORONARY ARTERY OF INFE ICD-10 Codes: Patient History: Medications: Meds past 24 hrs: Pretest Chest Pain: STRESS TEST Duane Protocol Exercise Duration (min:sec): 06:[address] Depressions (mm): Angina Score: Carey Score: Resting HR (bpm): 76 Peak HR (bpm): 142 Resting BP (mmHg): 136 / 83 Peak BP (mmHg): 195 / 73 MPHR: 165 Target HR: 140 % MPHR: 86 METS: 7.1 Total Dose: Peak Dose: Atropine: Double Product: 45279 BP Response: Stress Termination: DYSPNEA UNABLE TO CONTINUE,TARGET HR REACHED/MAX EXERTION Stress Symptoms: DIFFICULTY IN BREATHING Stress Summary: ECG ANALYSIS Resting ECG: Normal sinus rhythm normal axis normal intervals Stress ECG: Patient exercised on Duane protocol for 6 minutes achieving 7 mets 85% of predicted maximal heart rate without chest pain or diagnostic ST segment depression The test was stopped secondary to difficulty in breathing CONCLUSIONS Average exercise tolerance Negative stress test by EKG criteria Dr. Agapito Joyner MD (Electronically Signed) Final Date: 11 April 2023 11:02
--- NOTE | 2023-04-11 22:24 | NM ---
EXAMINATION TYPE: NM stress cardiolite complete DATE OF EXAM: 04/11/2023 COMPARISON: NONE HISTORY: Heart palpitations hypertension TECHNIQUE: After the intravenous administration of 10.3 mCi Tc 99m Sestamibi - Cardiolite resting SP ECT images acquired 45 minutes post injection. At peak stress 25.7 mCi Tc 99m Sestamibi - Stress images obtained 10 minutes post injection The patient was stressed on the treadmill. Greater than 85% predicted maximum heart rate was achieved . FINDINGS: No fixed defects are evident No reversible stress defects on Spect images Wall motion is normal Ejection fraction is calculated to be 72 %. IMPRESSION: 1. No stress-induced ischemic changes
== END | disposition home or self-care (01) ==
LOC: RADNMMAIN 08:02
PROVIDERS: ATTEND Internal Medicine
DX: I21.19 ST elevation (STEMI) myocardial infarction involving other coronary artery of inferior wall (principal); I10 Essential (primary) hypertension; R00.2 Palpitations
CPT/HCPCS: 93017; 78452; A9500

== ENCOUNTER → 2023-06-14 | Outpatient (CLI) | payer BC ==
--- NOTE | 2023-06-14 15:41 | XR ---
EXAMINATION TYPE: XR chest 2V DATE OF EXAM: 06/14/2023 COMPARISON: 09/08/2014 HISTORY: Shortness of breath TECHNIQUE: Frontal and lateral views of the chest are obtained. FINDINGS: Scattered senescent parenchymal changes noted. Hyperinflation compatible with COPD. No evidence for infiltrate. No evidence for atelectasis. Heart size is stable. Mediastinal structures are stable and grossly unremarkable. No evidence for hilar prominence. Degenerative changes dorsal spine. IMPRESSION: 1. No evidence for acute pulmonary disease.
== END | disposition home or self-care (01) ==
LOC: RADXRMAIN 14:29
PROVIDERS: ATTEND Internal Medicine
DX: J40 Bronchitis, not specified as acute or chronic (principal); R06.02 Shortness of breath
CPT/HCPCS: 71046

== ENCOUNTER → 2023-08-13 | Outpatient (CLI) | payer BC ==
--- NOTE | 2023-08-13 10:59 | BD ---
EXAMINATION TYPE: Axial Bone Density DATE OF EXAM: 08/13/2023 CLINICAL HISTORY: 57 years old Female. ICD-10 CODE: M85.851OTH DISRD OF BONE DENSITY AND STRUCTURE, RI Height: 5 ft 1 in Weight: 238 FRAX RISK QUESTIONS: Alcohol (3 or more units per day): no Family History (Parent hip fracture): no Glucocorticoids (More than 3mos): yes (Ex: prednisone, prednisolone, methylprednisolone, dexa methasone, and hydrocortisone). History of Fracture in Adulthood: yes Secondary Osteoporosis: 1. Type 1 Diabetes: no 2. Hyperthyroidism: no 3. Menopause before 45: yes 4. Malnutrition: no 5. Chronic liver disease: no Rheumatoid Arthritis: no Current Tobacco Use: no RISK FACTORS HISTORY OF: Surgery to Spine/Hip(right/left)/Wrist (right/left): no Family History of Osteoporosis: no Active: yes Diet low in dairy products/other sources of calcium: no Postmenopausal woman: yes Take estrogen and/or progesterone medications: no Lost more than 2 inches in height since high school: no Frequent falls: no Poor Health: good Hyperparathyroidism: no Adrenal Insufficiency: no MEDICATIONS: Thyroid Medications: yes Which medication: levothyroxine How Lon years Additional Medications: levothyroxine, metoprolol, amlodipine, losartan, duloxetine , ezetimibe Additional History: endometrial cancer radiation and chemo EXAM MEASUREMENTS: Bone mineral densitometry was performed using the [employer] System. Bone mineral density as measured about the Lumbar spine is: ----- L1-L4(G/cm2): 1.182 T Score Values are as follows: ----- L1: -1.1 ----- L2: 0.2 ----- L3: 0.0 ----- L4: 0.6 ----- L1-L4: 0.0 Z Score Values are as follows: ----- L1: -1.4 ----- L2: -0.1 ----- L3: -0.3 ----- L4: 0.3 ----- L1-L4: -0.3 baseline Bone mineral density about the R hip (g/cm2): 0.761 Bone mineral density about the L hip (g/cm2): 0.832 T Score values are as follows: -----R Neck: -2.0 -----L Neck: -1.5 -----R Total: -0.4 -----L Total: 0.1 Z Score values are as follows: -----R Neck: -1.7 -----L Neck: -1.2 -----R Total: -0.6 -----L Total: -0.1 baseline FRAX%s: The graph provided illustrates a 11.0 % chance for a major osteoporotic fx and a 1.4 % chance for the hips probability for fx in 10 years time. IMPRESSION: Osteopenia (T Score between -2.5 and -1). There is slightly increased risk of fracture and the patient may be considered for treatment. Re-Screen 2-5 years. NOTE: T-SCORE=SD OF THE YOUNG ADULT MEAN.
== END | disposition home or self-care (01) ==
LOC: RADBDWWP 09:06
PROVIDERS: ATTEND Internal Medicine
DX: M85.89 Other specified disorders of bone density and structure, multiple sites (principal); Z78.0 Asymptomatic menopausal state
CPT/HCPCS: 77080

== ENCOUNTER 2023-09-28 12:42 | Day surgery (SDC) | payer BC ==
[2023-09-26 11:01] VITALS: BMI 45.3
[~2023-09-28 12:42] MED LIST changes: -DEXAMETHASONE SOD PHOSPHATE 10 MG/ML 1 ML VIAL IV ONE; -KETOROLAC 15 MG/ML 1 ML VIAL ONE; -LIDOCAINE 1% (10MG/ML) FOR IV START INTRADERMA PRN; -LIDOCAINE 1% INJ 10MG/ML (20 ML MDV) ONE; -MIDAZOLAM 2 MG/2 ML VIAL ONE; -ONDANSETRON 4 MG/2 ML VIAL ONE; -PROPOFOL 10 MG/ML 20 ML VIAL IV ONE; -Pre Op ABX Message 1 EACH MISC MISCELLANE ONE; -SUCCINYLCHOLINE CHLORIDE VIAL 200 MG/10 ML VIAL IV ONE; -fentaNYL (PF) 50 MCG/ML 2 ML AMP ONE
[2023-09-28 14:24] VITALS: TEMP 97.9
[2023-09-28] MEDS ORDERED: PROPOFOL 10 MG/ML 20 ML VIAL IV ONE (14:38)
--- NOTE | 2023-09-28 14:49 | P.PCN ---
Date of Procedure: 09/28/23 Procedure(s) Performed: BRIEF HISTORY: Patient is a 57-year-old pleasant female scheduled for an elective colonoscopy as a part of screening for colon cancer. PROCEDURE PERFORMED: Colonoscopy. PREOPERATIVE DIAGNOSIS: Screening for colon cancer. IV sedation per Anesthesia. PROCEDURE: After informed consent was obtained, the patient, was brought into the endoscopy unit. IV sedation was administered by Anesthesia under continuous monitoring. Digital rectal examination was normal. Initially the Olympus CF-160 flexible video colonoscope was then inserted in the rectum, gradually advanced into the cecum without any difficulty. Careful examination was performed as the scope was gradually being withdrawn. Ileocecal valve and the appendiceal orifice were visualized and appeared normal. Prep was excellent. Mucosa of the cecum, ascending colon, transverse colon, descending colon, sigmoid colon, and rectum appeared normal. Retroflexion was performed in the rectum and no lesions were seen. The patient tolerated the procedure well. IMPRESSION: Normal-appearing colon from rectum to cecum with no evidence of colorectal neoplasia. RECOMMENDATIONS: Findings of this examination were discussed with the patient as well as a family. She was advised to have a repeat screening colonoscopy in 10 years..
[2023-09-28 15:11] VITALS: BP 105/71; PULSE 61; RESP 16
== END 2023-09-28 15:33 | disposition home or self-care (01) ==
LOC: ORWHC2ENDO 12:42
PROVIDERS: ATTEND Internal Medicine Gastroenterology
DX: Z12.11 Encounter for screening for malignant neoplasm of colon (principal); I10 Essential (primary) hypertension; E78.5 Hyperlipidemia, unspecified; G47.33 Obstructive sleep apnea (adult) (pediatric); E07.9 Disorder of thyroid, unspecified; F32.A Depression, unspecified; K21.9 Gastro-esophageal reflux disease without esophagitis; Z86.711 Personal history of pulmonary embolism; Z79.890 Hormone replacement therapy; Z79.899 Other long term (current) drug therapy
CPT/HCPCS: 45378; J2704

== ENCOUNTER 2023-10-12 08:02 | Day surgery (SDC) | payer BC ==
[~2023-10-12 08:02] MED LIST changes: +DEXAMETHASONE SOD PHOSPHATE 4 MG/ML 1 ML VIAL IV ONE; +HYDROmorphone 0.5 MG/0.5 ML SYRINGE IVP PRN; +MIDAZOLAM 2 MG/2 ML VIAL IV PRN; +ONDANSETRON 4 MG/2 ML VIAL IVP ONE; +SCOPOLAMINE 1 MG/72 HR PATCH TRANSDERM ONE
[2023-10-12] MEDS ORDERED: LACTATED RINGERS 1,000 ML IV ONE ×2 (08:30→10:58)
[2023-10-12 08:52] LABS: Basophils # (A) 0.1 k/uL (0-0.2); Basophils % (A) 1 %; Eosinophils # (A) 0.3 k/uL (0-0.7); Eosinophils % (A) 3 %; HCT 40.7 % (34.0-46.0); HGB 13.4 gm/dL (11.4-16.0); Lymphocytes # (A) 2.2 k/uL (1.0-4.8); Lymphocytes % (A) 24 %; MCH 26.3 pg (25.0-35.0); MCHC 32.9 g/dL (31.0-37.0); Mean Platelet Volume 7.6; Monocytes # (A) 0.5 k/uL (0-1.0); Monocytes % (A) 5 %; Neutrophils % (A) 66 %; Platelet Count 253 k/uL (150-450); RBC 5.09 m/uL (3.80-5.40); RDW 14.5 % (11.5-15.5); WBC 9.1 k/uL (3.8-10.6)
[2023-10-12] MEDS ORDERED: fentaNYL (PF) 50 MCG/1 ML VIAL IVP ONE (09:06)
[2023-10-12] MEDS ORDERED: MIDAZOLAM 2 MG/2 ML VIAL IVP ONE (09:06)
[2023-10-12] MEDS ORDERED: LIDOCAINE 2% (PF) 20 MG/ML 2 ML VIAL ONE (09:26)
[2023-10-12] MEDS ORDERED: PROPOFOL 10 MG/ML 20 ML VIAL IV ONE (09:26)
[2023-10-12] MEDS ORDERED: SUCCINYLCHOLINE CHLORIDE 200 MG/10 ML VIAL IV ONE (09:26)
[2023-10-12] MEDS ORDERED: fentaNYL (PF) 50 MCG/ML 2 ML AMP ONE (09:26)
[2023-10-12] MEDS ORDERED: ePHEDrine 50 MG/ML 1 ML VIAL ONE (09:26)
[2023-10-12] MEDS ORDERED: KETOROLAC 15 MG/ML 1 ML VIAL ONE (09:26)
[2023-10-12] MEDS ORDERED: ROPIVACAINE 5 MG/ML 30 ML VIAL ONE (09:26)
[2023-10-12] MEDS ORDERED: HYDROmorphone (PF) 1 MG/ML ONE (09:26)
[2023-10-12] MEDS ORDERED: GLYCOPYRROLATE 0.2 MG/ML 2 ML VIAL ONE (09:26)
[2023-10-12] MEDS ORDERED: NEOSTIGMINE 1 MG/ML 10 ML VIAL ONE (09:26)
[2023-10-12] MEDS ORDERED: ROCURONIUM 10 MG/ML (5 ML VIAL) IV ONE (09:26)
--- NOTE | 2023-10-12 09:26 | P.ANPRN ---
Procedure Note - Anesthesia - Nerve Block Performed Left Adductor Canal Single Time Out Performed: Yes Date of Procedure: 10/12/23 Procedure Start Time: 09:05 Procedure Stop Time: 09:10 Location of Patient: PreOp Indication: Acute Post-Operative Pain, Analgesia, Requested by Surgeon Sedation Type: Sedate with meaningful contact maintained Preparation: Sterile Prep Position: Supine Catheter: None Needle Types: Pajunk Needle Gauge: 21 Ultrasound used to visualize needle placement: Yes Ultrasound used to observe medication spread: Yes Injectate: 0.5% Ropivacaine (see comment for volume) (Ropiv 15ml) Blood Aspirated: No Pain Paresthesia on Injection Noted: No Resistance on Injection: Normal Image Stored and Saved: Yes Events: Uneventful and Well Tolerated
[2023-10-12] MEDS ORDERED: ceFAZolin 1,000 MG in SODIUM CHLORIDE 0.9% 1,000 ML IRRIGATION ONE (09:31)
--- NOTE | 2023-10-12 09:46 | P.ANPRN ---
Procedure Note - Anesthesia - Nerve Block Performed Left Popliteal Single Time Out Performed: Yes Date of Procedure: 10/12/23 Procedure Start Time: 09:11 Procedure Stop Time: 09:15 Location of Patient: PreOp Indication: Acute Post-Operative Pain, Analgesia, Requested by Surgeon Sedation Type: Sedate with meaningful contact maintained Preparation: Sterile Prep Position: Right Lateral Catheter: None Needle Types: Pajunk Needle Gauge: 21 Ultrasound used to visualize needle placement: Yes Ultrasound used to observe medication spread: Yes Injectate: 0.5% Ropivacaine (see comment for volume) (Ropiv 20ml) Blood Aspirated: No Pain Paresthesia on Injection Noted: No Resistance on Injection: Normal Image Stored and Saved: Yes Events: Uneventful and Well Tolerated
[2023-10-12 11:29] VITALS: TEMP 97
--- NOTE | 2023-10-12 11:39 | P.OP ---
Date of Procedure: 10/12/23 Preoperative Diagnosis: 1. Achilles tendinitis left ankle 2. Calcaneal spur left foot Postoperative Diagnosis: 1. Same 2. Same Procedure(s) Performed: 1. Secondary repair of left Achilles tendon 2. Excision of calcaneal spur left foot Implants: Arthrex Achilles insertional speed bridge Anesthesia: FLIP Surgeon: Yusuf Herrera Estimated Blood Loss (ml): 100 Pathology: none sent Condition: stable Disposition: PACU Description of Procedure: Prior to the patient being brought to the operating room, anesthesia administered nerve block on the surgical extremity. Once completed, the patient was taken into the operating room. Timeout was taken to confirm correct patient identifiers, correct laterality of surgery, and correct procedure. When all staff in the room were in agreement with the timeout, the patient was induced and placed under general anesthesia. The patient was then placed in the prone position on the operating room table. Appropriate padding was placed beneath the patient's face as well as in the thoracic area. Once anesthesia was satisfied with the patient positioning, a well-padded tourniquet was placed on the thigh. Then the leg was prepped and draped in the usual manner. The leg was exsanguinated and the tourniquet inflated to 250 mmHg. Attention was directed to the posterior aspect of the calcaneus at the Achilles insertion. Utilizing fluoroscopy, the insertion point was marked transversely across the heel. 4 small incisions are made in the 10:00 2:00 5:00 and 7:00 positions. 2 incisions were distal to the insertion and the other to proximal. An elevator was used to create tissue planes tween the skin and Achilles tendon between the 4 incisions. And then deeper dissection was done to the proximal incisions between the Achilles tendon and the calcaneus. A 4 mm bur was then inserted into the more distal incisions. The bur was to irrigation to help prevent damage to the bone. The bur was used to resect the posterior superior aspect of the calcaneus and then advance it to the calcification in the Achilles tendon. Once adequate resection was completed left which was confirmed under fluoroscopy, the bur was removed and then the area was thoroughly irrigated to remove any bony fragments. Through the more distal holes, K wires for the placement anchors were placed into the calcaneus. Over drilling was completed and then the holes were both tapped. Attention then directed to the more proximal holes were drill holes for the combination fiber Luis Miguel anchors and speed bridge suture were made. This is done utilizing proper technique, then the anchors were inserted through the turkey farmer and then impacted to proper depth. The suture was deployed and the turkey farmer removed. The suture for the speed bridge which was attached to a needle, was passed through the incision due to th e Achilles and out the skin. This was repeated with a working stitch through a separate needle. Then this is done on the opposite side in the same manner. The working stitches for the fiber Lewis anchors were then passed medial to lateral through the superficial skin plane utilizing the hook passer. Once the sutures were pulled through the were looped through the pull-through stitch which was then carefully tensioned through the anchor until the stitch was free. Both sutures were passed first before full tightening. Then both sutures were tensioned which tied the tendon for the ripstop back to the calcaneus. The telltale puckering of the skin was noted. The working sutures were then cut and then the needles cut off the speed bridge suture. Utilizing a combination of the hook and a hemostat one stitch was placed through the ipsilateral distal hole and the other through the contralateral distal hole in the central repeated on both sides so that the classic speed bridge construct was achieved. The K wires were removed and then the arms of the suture were placed through the eyelet of the 3.9 mm swivel lock anchor. The turkey farmer was aligned with the drill hole in the calcaneus, and with the suture under full tension, the anchor was inserted and and advanced to proper depth within the calcaneus. The area was palpated to indicate that the Achilles was fully intact and attached to the posterior aspect of the calcaneus. The wounds were thoroughly irrigated with antibiotic saline. Each incision was closed with 3-0 nylon. The incision was covered with a jumpstart dressing and then a bulky dry dressing. The tourniquet was released and capillary refill return to all digits on the left foot. The patient was then placed in a well-padded, well molded plaster posterior mol d/sugar tong splint. Ankle was held in neutral position until the splint was fully dried. The patient then rolled onto the transfer table where anesthesia was reversed and was taken recovery with vital signs stable
[2023-10-12] MEDS ORDERED: droPERidol 5 MG/2 ML VIAL IVP ONE (11:58)
[2023-10-12 14:41] VITALS: RESP 20
[2023-10-12 15:06] VITALS: BP 103/65; PULSE 87
== END 2023-10-12 14:54 | disposition home or self-care (01) ==
LOC: OR 08:02
PROVIDERS: ATTEND Podiatrist
DX: M76.62 Achilles tendinitis, left leg (principal); M77.32 Calcaneal spur, left foot; G89.18 Other acute postprocedural pain; I10 Essential (primary) hypertension; E03.9 Hypothyroidism, unspecified; E78.5 Hyperlipidemia, unspecified; F10.90 Alcohol use, unspecified, uncomplicated; G47.33 Obstructive sleep apnea (adult) (pediatric); K21.9 Gastro-esophageal reflux disease without esophagitis; Z79.890 Hormone replacement therapy; Z79.899 Other long term (current) drug therapy; Z88.8 Allergy status to other drugs, medicaments and biological substances; Z86.711 Personal history of pulmonary embolism; Z90.49 Acquired absence of other specified parts of digestive tract; Z90.710 Acquired absence of both cervix and uterus
CPT/HCPCS: 64447; 64445; 85025; 28119; 27654; C1713; J2250; J0330; J1100; J2710; J0690 ×2; J2405; J3010 ×2; J1170; J2795; J1885; J2704; J2001; J1790